=== PATIENT | male | born 1960 | race Caucasian/White ===

== ENCOUNTER → 2018-09-04 08:26 | Outpatient (CLI) | payer OTHER, SELFPAY ==
[2018-09-04 08:47] LABS: Creatinine,Urine Random 333 mg/dL (20-320)
[2018-09-04 10:08] LABS: Alanine Aminotransferase 49 U/L (12-78); Albumin Level 3.8 gm/dL (3.4-5.0); Albumin/Globulin Ratio 1.1 (1.1-1.8); Alkaline Phosphatase 76 U/L (46-116); Anion Gap 14.3 mEq/L (5-15); Aspartate Amino Transferase 22 U/L (15-37); Bilirubin,Total 0.5 mg/dL (0.2-1.0); Blood Urea Nitrogen 12 mg/dL (7-18); Calcium 8.8 mg/dL (8.5-10.1); Carbon Dioxide 27 mmol/L (21.0-32.0); Chloride 103 mmol/L (98-107); Chol/HDL Ratio 7.7 (1-3.5); Cholesterol 193 mg/dL (140-200); Creatinine,Serum 0.85 mg/dL (0.70-1.30); Estimated Glomerular Filt Rate 92 ml/min (>60); GFR (African American) 111 ML/MIN (>60); Globulin 3.4 gm/dl (1.3-3.2); Glucose 163 mg/dL (74-106); HDL Cholesterol 25 mg/dL (27-67); Potassium 4.3 mmoL/L (3.5-5.1); Sodium 140 mmol/L (136-145); Thyroid Stimulating Hormone 2.77 uIU/ml (0.358-3.740); Total Protein,Serum 7.2 gm/dL (6.4-8.2); Triglycerides 618 mg/dL (30-200)
[2018-09-05 14:18] LABS: Microalbumin, Urine 20.3 ug/mL (Not Estab.)
== END ==
PROVIDERS: Visit Provider Family Medicine
DX: I10 Essential (primary) hypertension (principal)
CPT/HCPCS: 36415; 80053; 80061; 82043; 82570; 84443

== ENCOUNTER → 2019-09-16 13:52 | Outpatient (CLI) | payer BC, SELFPAY ==
[2019-09-16 14:00] LABS: Microscopic, Urine URINE MICROSCOPIC (MICROSCOPIC)
[2019-09-16 14:35] LABS: Basophils # 0.1 K/mm3 (0-0.2); Basophils % 0.9 % (0.1-2.0); Eosinophils # 0.2 K/mm3 (0.0-0.4); Eosinophils % 2.3 % (0.1-12.0); Hematocrit 53.1 % (42.0-52.0); Hemoglobin 16.9 g/dL (14.1-18.0); Lymphocytes # 2.9 K/mm3 (0.7-4.5); Lymphocytes % 32.7 % (10-50); Mean Corpuscular HGB Conc 31.9 g/dL (31.8-35.4); Mean Corpuscular Hemoglobin 29.4 pg (27.0-31.2); Mean Corpuscular Volume 92.3 fl (80-94); Mean Platelet Volume 8.8 fl (7.4-10.4); Monocytes # 0.5 K/mm3 (0.1-1.0); Monocytes % 5.3 % (1.7-9.3); Neutrophils # 5.3 K/mm3 (1.8-7.8); Neutrophils % 58.8 % (37.0-80.0); Platelet Count 221 K/mm3 (142-424); Red Blood Count 5.75 M/mm3 (4.60-6.20)
[2019-09-16 15:46] LABS: Appearance,Urine CLEAR (Clear); Blood, Urine Negative (Negative); Color,Urine DK YELLOW (Yellow); Glucose,Urine (UA) 2+ (Negative); Ketones,Urine Negative (Negative); Leukocyte Esterase,Urine Negative (Negative); Nitrate,Urine Negative (Negative); PH,Urine 5.5 (5.0-8.5); Protein,Urine 2+ (Negative); Specific Gravity, Urine >= 1.030 (1.005-1.030); Urobilinogen,Urine 0.2 EU/dl (0.2)
[2019-09-16 15:51] LABS: Bilirubin,Urine Negative (Negative)
[2019-09-16 16:10] LABS: Alanine Aminotransferase 95 U/L (12-78); Albumin/Globulin Ratio 1.1 (1.1-1.8); Alkaline Phosphatase 97 U/L (46-116); Anion Gap 18.7 mEq/L (5-15); Aspartate Amino Transferase 46 U/L (15-37); Bilirubin,Total 0.7 mg/dL (0.2-1.0); Blood Urea Nitrogen 22 mg/dL (7-18); Calcium 9.4 mg/dL (8.5-10.1); Carbon Dioxide 23 mmol/L (21.0-32.0); Chloride 98 mmol/L (98-107); Chol/HDL Ratio 9.4 (1-3.5); Cholesterol 264 mg/dL (140-200); Creatinine,Serum 1.03 mg/dL (0.70-1.30); Estimated Glomerular Filt Rate 73 ml/min (>60); GFR (African American) 89 ML/MIN (>60); Globulin 3.7 gm/dl (1.3-3.2); Glucose 298 mg/dL (74-106); HDL Cholesterol 28 mg/dL (27-67); Potassium 4.7 mmoL/L (3.5-5.1); Sodium 135 mmol/L (136-145); Thyroid Stimulating Hormone 3.09 uIU/ml (0.358-3.740); Total Protein,Serum 7.7 gm/dL (6.4-8.2)
[2019-09-16 16:11] LABS: Triglycerides 910 mg/dL (30-200)
[2019-09-16 16:16] LABS: Bacteria,Urine 1+ /lpf; Mucus,Urine 1+ /lpf; RBC,Urine Occasional #/hpf (0-3)
[2019-09-18 05:19] LABS: Creatinine, Urine 316.6 mg/dL (Not Estab.)
[2019-09-18 06:01] LABS: Microalbumin, Urine 560.1 ug/mL (Not Estab.)
== END ==
PROVIDERS: Visit Provider Family Medicine
DX: I10 Essential (primary) hypertension (principal); R35.8 Other polyuria; R73.9 Hyperglycemia, unspecified; E78.1 Pure hyperglyceridemia
CPT/HCPCS: 36415; 80053; 80061; 81001; 82043; 82570; 83036; 84443; 85025

== ENCOUNTER 2023-06-27 06:54 | Day surgery (SDC) | payer BC, SELFPAY ==
[2023-06-23 15:16] VITALS: BMI 27.9
[2023-06-27 07:19] VITALS: BP 176/128; PULSE 65; RESP 16; TEMP 36.7; O2SAT 98
[2023-06-27 07:23] LABS: POC Glucose,Bedside 85 (70-110)
[2023-06-27 08:05] VITALS: BP 185/99; PULSE 56; RESP 17; O2SAT 100
[2023-06-27 08:10] VITALS: BP 188/98; PULSE 57; RESP 16; O2SAT 100
[2023-06-27 08:15] VITALS: BP 162/94; PULSE 57; RESP 17; O2SAT 100
[2023-06-27 08:20] VITALS: BP 165/96; PULSE 55; RESP 16; O2SAT 100
[2023-06-27 08:38] VITALS: BP 158/85; PULSE 55; RESP 18; TEMP 36.2; O2SAT 95
== END 2023-06-27 08:38 | disposition home or self-care (01) ==
PROVIDERS: PCP Family Medicine; Visit Provider Ophthalmology
PROC: (CPT 66984; principal; 2023-06-27 08:30)
DX: E11.36 Type 2 diabetes mellitus with diabetic cataract (principal); H25.9 Unspecified age-related cataract
CPT/HCPCS: 66984; 82962; V2632

== ENCOUNTER 2023-08-29 06:32 | Day surgery (SDC) | payer BC, SELFPAY ==
[2023-08-25 11:54] VITALS: BMI 27.1
[2023-08-29] VITALS (8 sets, daily range): BP systolic 152–185; BP diastolic 86–108; PULSE 55–68; RESP 17–19; TEMP 36.4–37.1; O2SAT 97–100
[2023-08-29 11:40] LABS: POC Glucose,Bedside 86 (70-110)
== END 2023-08-29 09:25 | disposition home or self-care (01) ==
PROVIDERS: PCP Family Medicine; Visit Provider Ophthalmology
PROC: (CPT 66984; principal; 2023-08-29 08:30)
DX: E11.36 Type 2 diabetes mellitus with diabetic cataract (principal); H25.9 Unspecified age-related cataract
CPT/HCPCS: 66984; 82962; V2632

== ENCOUNTER 2025-05-24 07:04 | Emergency (ER) | payer BC, SELFPAY ==
--- OUTSIDE RECORDS SUMMARY | 2024-04-19 05:30 | XMS_ITS ---
Author Organization [facility] Address [address] [place] [id number] Care Team Providers Care [employer] Caser Name Role Phone Federico Segal Primary Care Provider Tod Anant Unavailable [phone] Allergies No Known Allergies Results Component Value Reference Range Notes Glucose (In-House) Reviewed date:04/19/2024 01:11:48 PM Interpretation: Performing Lab: Notes/Report: blood glucose 84 74 - 106 mg/dL Glycohemoglobin A1c (in hous e) Reviewed date:04/19/2024 01:11:41 PM Interpretation: Performing Lab: Notes/Report: glycohemoglobin 5.5% 5 - 6.5 % REASON FOR VISIT 6 Month Check Up Medications Medication SIG (Take, Route, Frequency, Duration) Notes Start Date End Date Status amLODIPine Besy-Benazepril HCl 5-10 MG TAKE 1 CAPSULE BY MOUTH EVERY DAY Active Metoprolol Succinate ER 100 MG 1 tab(s) orally once a day A ctive Gabapentin 300 MG 1 cap(s) orally 2 ti mes a day 10/13/2023 Active metFORMIN HCl ER 500 MG 1 tablet with ev ening meal orally once a day Active Vital Signs Blood pressure systolic 140 mm Hg 04/19/20 24 Blood pressure diastolic 80 mm Hg 024 Heart Rate 60 /min 04/19/2024 Height 71 in 04/19/2024 Weight 199.8 lbs 04/19/2024 BMI 27.86 kg/m2 04/19/2024 Encounters Encounter Location Date Provider Diagnosis [facility] [address] [place] [id number] 04/19/2024 Anant Baron Essential hypertensi on I10 and Diabetic polyneuropathy associated with type 2 diabetes mellitus E11.42 Assessments Encounter Date Diagnosis (ICD Code) Assessment Notes Treatment Notes Treatment Clinical Notes Section Notes 04/19/2024 Essential hypertension (ICD-10 - I10) 04/19/2024 Diabetic polyneuropathy associated with type 2 diabetes mellitus (ICD-10 - E11.42) Plan Of Treatment Medication Medication Name Sig Start Date Stop Date Notes amLODIPine Besy-Benazepril H Cl 5-10 MG TAKE 1 CAPSULE BY MOUTH EVERY DAY Metoprolol Succinate ER 100 MG 1 tab(s) orally once a day Gabapentin 300 MG 1 cap(s) orally 2 ti mes a day 10/13/2023 metFORMIN HCl ER 500 MG 1 tablet with ev ening meal orally once a day Next Appt Details Follow Up: 6 Months, Reason: Provider Name:Anant Almonte , 05/31/2025 09:15:00 AM, [address], [address], [place], [id number], Progress Notes * DEIDRA HURTADODOB: [birth year] (65 yo M)Acc No.[id number]:04/19/2024 Progress Notes Patient: DEIDRA CABALLERO Provider: Andrez Baron M.D. :1960 A ge:63 Y S ex:Male Date:04/19/2024 Address:[address] [place] [id number] Pcp:Federico Segal Subjective: * Chief Complaints: * 1 . 6 Month Check Up. * HPI: C ardiology: 63 year old male presents with c/o Blood Pressure Elevated P t here for 6 mo f/u on hypertension, states he is doing well and does not have any concerns. c/o Hyperlipidemia P t is fasting today. E ndocrinology: c/o Recent Blood Sugars P t here to f/u on DM 2, pt does not check blood sugar at home. * ROS: D ERMATOLOGY: no R yina. n o H dontrell. G ASTROENTEROLOGY: no N ausea. n o V omiting. U ROLOGY: no D ifficulty urinating. n o B lood in urine. * Medical History: H ypertension, 40 Year Smoking Hx as of 2015, Type 2 Diabetes, Diabetic Neuropathy, Cataracts. * Surgical History: L T Hand First Digit, 2 pins inserted into finger, Dr. Pack 04/2007, cataract, bilateral 2022. * Hospitalization/Major Diagno stic Procedure: D enies Past Hospitalization. * Family History: F ather: . M other: alive. 1 brother(s) , 2 sister(s) . 1 daughter(s) . .? * Social History: C URRENT TOBACCO USE S moking Status: Patient does smoke, packs per day: 1. C affeine: yes, frequency:daily. Home smoke detector use: yes. Marital Status: . Past smoking status: yes, PPD: , years: ,determination:. Alcohol: no. * Medications: T aking metFORMIN HCl ER 500 MG Tablet Extended Release 24 Hour 2 tab(s) orally once a day , Taking Gabapentin 300 MG Capsule 1 cap(s) orally 2 times a day , Taking Metoprolol Succinate ER 100 MG Tablet Extended Release 24 Hour 1 tab(s) orally once a day , Taking amLODIPine Besy-Benazepril HCl 5-10 MG Capsule TAKE 1 CAPSULE BY MOUTH EVERY DAY , Medication List reviewed and reconciled with the patient * Allergies: N .K.D.A. Objective: * Vitals: W t:199.8, Temp:98.0, BP:140/80, HR:60, Nurse:ghazala, Ht: 71, BMI:27.86. * Examination: C ardiology: General Appearance: p leasant, NAD. H eart sounds: R RR, normal S1, S2. L ungs: c lear, no rales or wheezes. E xtremities: n o leg edema. P eripheral pulses: 2 plus bilateral. Assessment: * Assessment: 1. E ssential hypertension - I10 (Primary) 2 . D iabetic polyneuropathy associated with type 2 diabetes mellitus - E11.42 Plan: * Treatment: 2. D iabetic polyneuropathy associated with type 2 diabetes mellitus Continue Gabapentin Capsule, 300 MG, 1 cap(s), orally, 2 times a day; D ecrease metFORMIN HCl ER Tablet Extended Release 24 Hour, 500 MG, 1 tablet with evening meal, orally, once a day. ? L AB: Glucose (In-House) (Collection Date & Time - 04/19/2024) Value Reference Range b lood glucose 84 74 - 106 mg/dL * Brunilda Phelan 04/19/2024 10:55:17 AM > , Provider reviewed results while patient in office. ?LAB: Glycohemoglobin A1c (in house) (Collection Date & Time - 04/19/2024)* Value Reference Range g lycohemoglobin 5.5% 5 - 6.5 % * Nuzhat Phelanira 04/19/2024 10:55:36 AM > , Provider reviewed results while patient in office. * Procedure Codes: 3 6416 CAPILLARY BLOOD DRAW, 79733 GLUCOSE TEST, 05303 GLYCATED HEMOGLOBIN TEST, Modifiers: QW * Follow Up: 6 Months * Images: Billing Information: * Visit Code: 43639 Office Visit, Est Pt., Level 3. * Procedure Codes: 99622 CAPILLARY BLOOD DRAW. 12211 GLUCOSE TEST. 04829 GLYCATED HEMOGLOBIN TEST. Modifiers: QW * Electronic signature of Pippa Baron MD on 05/24/2025 at 07:17 AM EDT Sign off status: Pending * Provider: Andrez Baron M.D. Date: 04/19/2024 Generated for Efrain mendes/Sharon/Scottsmitting on: 0 05/24/2025 07:17 AM EDT History and Physical Notes * HPI (History of Present Illness) Category Sub-Category Detail Notes Category Not es Endocrinology Recent Blood Sugars Pt here to f /u on DM 2, pt does not check blood sugar at home Cardiology Blood Pressure Elevated Pt here for 6 mo f/u on hypertension, states he is doing well and does not have any concerns Hyperlipidemia Pt is fasting today Examination Category Sub-Category Detail Notes Category Not es Cardiology Lungs: clear, no rales or wheezes Heart sounds: RRR, normal S1, S2 Extremities: no leg edema Peripheral pulses: 2 plus bilateral General Appearance: pleasant, NAD
--- OUTSIDE RECORDS SUMMARY | 2024-11-01 06:00 | XMS_ITS ---
Author Organization [facility] Address 1210 [facility] 36 [facility] [address] [place] [id number] Care Team Providers Care Graphics Production Specialist Name Role Phone Federico Segal Primary Care Provider Anant Baron [phone] Allergies No Known Allergies REASON FOR VISIT 6 months Encounters Encounter Location Date Provider Diagnosis [facility] 12[address] [facility] 36 [facility] [address] [place] [phone] 11/01/2024 Anant Baron Plan Of Treatment Next Appt Details Provider Name:Anant Almonte ry, 05/31/2025 09:15:00 AM, [address], [address], [facility] [place], [phone], Progress Notes * DEIDRA HURTADODOB: [birth year] (65 yo M)Acc No.[id number]:11/01/2024 Progress Notes Patient: DEIDRA CABALLERO Provider: Andrez Baron M.D. :1960 A ge:64 Y S ex:Male Date:11/01/2024 [address] [facility] [id number] Pcp:Federico Segal Subjective: * Chief Complaints: * 1 . 6 months. * HPI: C ardiology: 64 year old male presents with c/o Blood Pressure Elevated P t here for 6 mo f/u on hypertension, states he is doing well and does not have any concerns. c/o Hyperlipidemia P t is fasting today. E ndocrinology: c/o Recent Blood Sugars P t here to f/u on DM 2. * ROS: D ERMATOLOGY: no R yina. [...] PPD: , years: ,determination:. Alcohol: no. * Allergies: N .K.D.A. Objective: * Vitals: Assessment: Plan: * Treatment: * Images: Billing Information: * Visit Code: * Procedure Codes: * Electronic signature of Pippa Baron MD on 05/24/2025 at 07:17 AM EDT Sign off status: Pending * Provider: Andrez Baron M.D. Date: 0 11/01/2024 Generated for Efrain mendes/Sharon/eTransmitting on: 0 05/24/2025 07:17 AM EDT History and Physical Notes * HPI (History of Present Illness) Category Sub-Category Detail Notes Category Not es Endocrinology Recent Blood Sugars Pt here to f/u on DM 2 Cardiology Blood Pressure Elevated Pt here for 6 mo f/u on hypertension, states he is doing well and does not have any concerns Hyperlipidemia Pt is fasting today
--- OUTSIDE RECORDS SUMMARY | 2024-11-08 06:00 | XMS_ITS ---
[facility] Organization [facility] Address [address] [phone] Care Team Providers Care [employer] Special Education Teacher Name Role Phone LuzmaFederico Primary Care Provider Anant Baron Unavailable [phone] Allergies No Known Allergies Results Component Value Reference Range Notes Glucose (In-House) Reviewed date:11/11/2024 05:32:27 PM Interpretation:89 Normal Performing Lab: Notes/Report: 89 Normal blood glucose 89 74 - 106 mg/dL Glycohemoglobin A1c (in hous e) Reviewed date:11/11/2024 05:32:27 PM Interpretation:5.5 Normal Performing Lab: Notes/Report: 5.5 Normal glycohemoglobin 5.5% 5 - 6.5 % P-Comprehensive Metabolic Pa coretta (CMP) Reviewed date:11/11/2024 05:32:27 PM Interpretation:Normal Performing Lab: Notes/Report: Test performed by [facility] [address] [place] [address] , [address], [place] [address] Sandeep Jett MD, [place] CLIA: [id number] Sodium 142 135-145 mmol/L Potassium 3.9 3.5-5.3 mmol/L Chloride 106 97-108 mmol/L CO2 26 22-32 mmol/L Glucose 80 65-99 mg/dL BUN 15 8-23 mg/dL Creatinine 0.76 0.70-1.30 mg/dL Calcium 9.4 8.6-10.4 mg/dL eGFR by Creatinine 99 >59 mL/min/1.73m2 Protein 7.1 6.0-8.3 g/dL Albumin 4.6 3.5-5.3 g/dL Alkaline Phosphatase 62 40-129 IU/L ALT (SGPT) 20 <5-55 IU/L AST (SGOT) 19 <5-46 IU/L Bilirubin, Total 0.6 <0.2-1.2 mg/dL A/G Ratio 1.8 1.1-2.5 P-Lipid Panel Reviewed date:11/11/2024 05:32:27 PM Interpretation:Normal Performing Lab: Notes/Report: Test performed by [facility], [address] [place] [address] , [address], [place] [address] Sandeep Jett MD, [place] CLIA: [id number] Cholesterol 165 <200 mg/dL Triglycerides 135 <150 mg/dL HDL Cholesterol 39 >39 mg/dL Cholesterol / HDL Ratio 4.23 0.00-4.99 Ratio Non-HDL Cholesterol 126 <130 mg/dL LDL Cholesterol (Calculation) 99 <130 mg/dL LDL Cholesterol Levels* Less than 100 mg/dL Optimal 100 to 129 mg/dL Near Optimal/ Above Optimal 130 to 159 mg/dL Borderline High 160 to 189 mg/dL High 190 mg/dL and above Very High * Categories as recommended by the 2004 ATPIII guidelines LDL/HDL Ratio 2.5 <3.3 Ratio LDL Cholesterol Patient History Test Date: 10/13/2023 LDL Results: 100 Units: mg/dL % Change: - Test Date: 11/08/2024 LDL Results: 99 Units: mg/dL % Change: -1% P-TSH reflex to FT4 Reviewed date:11/11/2024 05:32:27 PM Interpretation:Normal Performing Lab: Notes/Report: Test performed by [facility] [address] [place], [place] [address] [place] , [place] [address] Sandeep Jett MD, [place] CLIA: [id number] TSH reflex to FT4 2.38 0.43-5.25 mU/L P-Microalbumin/Creatinine, R andom Urine Sample Reviewed date:11/11/2024 05:32:27 PM Interpretation:Normal Performing Lab: Notes/Report: Test performed by [facility] [address] [place], [place] [address] [place] , [place] [address] Sandeep Jett MD, [place] CLIA: [id number] Albumin/Creatinine Ratio, Urine 10 0-30 ug/m g Microalbumin, Urine, Random 1.6 Creatinine, Urine 152.4 REASON FOR VISIT 6 month f/u Medications Medication SIG (Take, Route, Frequency, Duration) Notes Start Date End Date Status Gabapentin 300 MG 1 cap(s) orally 2 ti mes a day; Duration: 90 days 06/25/2024 Active Montelukast Sodium 10 MG TAKE 1 TABLET B Y MOUTH DAILY; Duration: 90 Active Metoprolol Succinate ER 100 MG 1 tab(s) orally once a day; Duration: 90 days Active amLODIPine Besy-Benazepril HCl 5-10 MG TAKE 1 CAPSULE BY MOUTH EVERY DAY; Duration: 90 days Active metFORMIN HCl ER 500 MG TAKE 1 TABLET BY MOUTH DAILY WITH THE EVENING MEAL; Duration: 90 days Active Vital Signs Blood pressure systolic 150 mm Hg 11/08/19 25 Blood pressure diastolic 80 mm Hg 025 Heart Rate 66 /min 11/08/2024 Height 71 in 11/08/2024 Weight 209.4 lbs 11/08/2024 BMI 29.20 kg/m2 11/08/2024 Encounters Encounter Location Date Provider Diagnosis [facility] [address] [place], [place] [phone] 11/08/2024 Anant Baron Essential hypertensi on I10 ; Type 2 diabetes mellitus without complication, without long-term current use of insulin E11.9 ; Hypertriglyceridemia E78.1 and Diabetic polyneuropathy associated with type 2 diabetes mellitus E11.42 Assessments Encounter Date Diagnosis (ICD Code) Assessment Notes Treatment Notes Treatment Clinical Notes Section Notes 11/08/2024 Essential hypertensi on (ICD-10 - I10) 11/08/2024 Type 2 diabetes sondra itus without complication, without long-term current use of insulin (ICD-10 - E11.9) 11/08/2024 Hypertriglyceridemia (ICD-10 - E78.1) 11/08/2024 Diabetic polyneuropa thy associated with type 2 diabetes mellitus (ICD-10 - E11.42) Plan Of Treatment Medication Medication Name Sig Start Date Stop Date Notes Metoprolol Succinate ER 100 MG 1 tab(s) orally once a day; Duration: 90 days amLODIPine Besy-Benazepril H Cl 5-10 MG TAKE 1 CAPSULE BY MOUTH EVERY DAY; Duration: 90 days metFORMIN HCl ER 500 MG TAKE 1 TABLET BY MOUTH DAILY WITH THE EVENING MEAL; Duration: 90 days Next Appt Details Follow Up: 6 Months, Reason: Provider Name:Anant Almonte , 05/31/2025 09:15:00 AM, 1210 [facility] 36 [facility], [address], [place], [phone], Progress Notes * DEIDRA HURTADODOB: [birth year] (65 yo M)Acc No.[id number]:11/08/2024 Progress Notes Patient: DEIDRA CABALLERO Provider: Andrez Baron M.D. :1960 A ge:64 Y S ex:Male Date:11/08/2024 Address:[address] [place] [address] [place], [id number] Pcp:Federico Segal Subjective: * Chief Complaints: * 1 . 6 month f/u. * HPI: C ardiology: 64 year old male presents with c/o Blood Pressure Elevated P t here for 6 mo f/u on hypertension, states he is doing well and does not have any concerns. c/o Hyperlipidemia P t is fasting today. E ndocrinology: c/o Recent Blood Sugars P t here to f/u on DM 2, pt states he does not check blood sugar at home. [...] ,determination:. Alcohol: no. * Medications: T aking Montelukast Sodium 10 MG Tablet TAKE 1 TABLET BY MOUTH DAILY , Taking Gabapentin 300 MG Capsule 1 cap(s) orally 2 times a day , Taking Metoprolol Succinate ER 100 MG Tablet Extended Release 24 Hour 1 tab(s) orally once a day , Taking amLODIPine Besy-Benazepril HCl 5-10 MG Capsule TAKE 1 CAPSULE BY MOUTH EVERY DAY , Taking metFORMIN HCl ER 500 MG Tablet Extended Release 24 Hour TAKE 1 TABLET BY MOUTH DAILY WITH THE EVENING MEAL , Medication List reviewed and reconciled with the patient * Allergies: N .K.D.A. Objective: * Vitals: W t:209.4, Temp:98.0, BP:150/80, HR:66, Nurse:kk, Ht: 71, Repeat BP:144/76, BMI:29.20. * Examination: C ardiology: General Appearance: p leasant, NAD. H eart sounds: R RR, normal S1, S2. L ungs: c lear, no rales or wheezes. E xtremities: n o leg edema. P eripheral pulses: 2 plus bilateral. Assessment: * Assessment: 1. E ssential hypertension - I10 (Primary) 2 . T ype 2 diabetes mellitus without complication, without long-term current use of insulin - E11.9 3 . H ypertriglyceridemia - E78.1 4 . D iabetic polyneuropathy associated with type 2 diabetes mellitus - E11.42 Plan: * Treatment: Value Reference Range A /G Ratio 1.8 1.1-2.5 - * A lbumin 4.6 3.5-5.3 - g/dL * A lkaline Phosphatase 62 40-129 - IU/L * A LT (SGPT) 20 <5-55 - IU/L * A ST (SGOT) 19 <5-46 - IU/L * B ilirubin, Total 0.6 <0.2-1.2 - mg/dL * B UN 15 8-23 - mg/dL * C alcium 9.4 8.6-10.4 - mg/dL * C hloride 106 97-108 - mmol/L * C O2 26 22-32 - mmol/L * C reatinine 0.76 0.70-1.30 - mg/dL * G lucose 80 65-99 - mg/dL * P otassium 3.9 3.5-5.3 - mmol/L * S odium 142 135-145 - mmol/L * P rotein 7.1 6.0-8.3 - g/dL * e GFR by Creatinine 99 >59 - mL/min/1.73m2 * Brunilda Phelan 11/11/2024 5:31:55 PM > Pt informed 2.?Type 2 diabetes mellitus without complication, without long-term current use of insulin? Refill metFORMIN HCl ER Tablet Extended Release 24 Hour, 500 MG, TAKE 1 TABLET BY MOUTH DAILY WITH THE EVENING MEAL, 90 days, 90 Tablet, Refills 1.?LAB: P-Comprehensive Metabolic Panel (CMP) (Collection Date & Time - 11/08/2024 09:37 AM)?Normal* Value Reference Range A /G Ratio 1.8 1.1-2.5 - * A lbumin 4.6 3.5-5.3 - g/dL * A lkaline Phosphatase 62 40-129 - IU/L * A LT (SGPT) 20 <5-55 - IU/L * A ST (SGOT) 19 <5-46 - IU/L * B ilirubin, Total 0.6 <0.2-1.2 - mg/dL * B UN 15 8-23 - mg/dL * C alcium 9.4 8.6-10.4 - mg/dL * C hloride 106 97-108 - mmol/L * C O2 26 22-32 - mmol/L * C reatinine 0.76 0.70-1.30 - mg/dL * G lucose 80 65-99 - mg/dL * P otassium 3.9 3.5-5.3 - mmol/L * S odium 142 135-145 - mmol/L * P rotein 7.1 6.0-8.3 - g/dL * e GFR by Creatinine 99 >59 - mL/min/1.73m2 * Brunilda Phelan 11/11/2024 5:31:55 PM > Pt informed ?LAB: P-TSH reflex to FT4 (Collection Date & Time - 11/08/2024 09:37 AM)? Normal* Value Reference Range T SH reflex to FT4 2.38 0.43-5.25 - mU/L * Brunilda Phelan 11/11/2024 5:31:55 PM > Pt informed ?LAB: P-Microalbumin/Creatinine, Random Urine Sample (Collection Date & Time - 11/08/2024 09:37 AM)?Normal* Value Reference Range A lbumin/Creatinine Ratio, Urine 10 0-30 - ug /mg * C reatinine, Urine 152.4 - mg/dL * M icroalbumin, Urine, Random 1.6 - mg/dL * Brunilda Phelan 11/11/2024 5:31:55 PM > Pt informed ?LAB: Glucose (In-House) (Collection Date & Time - 11/08/2024)?89 Normal* Value Reference Range b lood glucose 89 74 - 106 mg/dL * Brunilda Phelan 11/08/2024 12:15:4 6 PM > Brunilda Phelan 11/11/2024 5:31:55 PM > Pt informed ?LAB: Glycohemoglobin A1c (in house) (Collection Date & Time - 11/08/2024)? 5.5 Normal* Value Reference Range g lycohemoglobin 5.5% 5 - 6.5 % * Brunilda Phelan 11/08/2024 12:20:5 3 PM > Brunilda Phelan 11/11/2024 5:31:55 PM > Pt informed 3.?Hypertriglyceridemia?LAB: P-Comprehensive Metabolic Panel (CMP) (Collection Date & Time - 11/08/2024 09:37 AM)?Normal* Value Reference Range A /G Ratio 1.8 1.1-2.5 - * A lbumin 4.6 3.5-5.3 - g/dL * A lkaline Phosphatase 62 40-129 - IU/L * A LT (SGPT) 20 <5-55 - IU/L * A ST (SGOT) 19 <5-46 - IU/L * B ilirubin, Total 0.6 <0.2-1.2 - mg/dL * B UN 15 8-23 - mg/dL * C alcium 9.4 8.6-10.4 - mg/dL * C hloride 106 97-108 - mmol/L * C O2 26 22-32 - mmol/L * C reatinine 0.76 0.70-1.30 - mg/dL * G lucose 80 65-99 - mg/dL * P otassium 3.9 3.5-5.3 - mmol/L * S odium 142 135-145 - mmol/L * P rotein 7.1 6.0-8.3 - g/dL * e GFR by Creatinine 99 >59 - mL/min/1.73m2 * Brunilda Phelan 11/11/2024 5:31:55 PM > Pt informed ?LAB: P-Lipid Panel (Collection Date & Time - 11/08/2024 09:37 AM)?Normal* Value Reference Range C holesterol / HDL Ratio 4.23 0.00-4.99 - Ratio * C holesterol 165 <200 - mg/dL * H DL Cholesterol 39 L >39 - mg/dL * L DL Cholesterol (Calculation) 99 <130 - mg/d L * L DL/HDL Ratio 2.5 <3.3 - Ratio * N on-HDL Cholesterol 126 <130 - mg/dL * T riglycerides 135 <150 - mg/dL * Nuzhat Phelanira 11/11/2024 5:31:55 PM > Pt informed * Procedure Codes: 8 2950 GLUCOSE TEST, 81377 GLYCATED HEMOGLOBIN TEST, Modifiers: QW , 3044F HG A1C LEVEL LT 7.0%, 3077F SYST BP = 140 MM HG6 IT, 3078F DIAST BP < 80 MM HG * Follow Up: 6 Months * Images: Billing Information: * Visit Code: 65622 Office Visit, Est Pt., Level 4. * Procedure Codes: 00426 GLUCOSE TEST. 68556 GLYCATED HEMOGLOBIN TEST. Modifiers: QW 3044F HG A1C LEVEL LT 7.0%. 3077F SYST BP = 140 MM HG6 IT. 3078F DIAST BP < 80 MM HG. * Electronic signature of Pippa Baron MD on 05/24/2025 at 07:18 AM EDT Sign off status: Pending * Provider: Andrez Baron M.D. Date: 0 11/08/2024 Generated for Efrain mendes/Sharon/eTransmitting on: 0 05/24/2025 07:18 AM EDT History and Physical Notes * HPI (History of Present Illness) Category Sub-Category Detail Notes Category Not es Endocrinology Recent Blood Sugars Pt here to f /u on DM 2, pt states he does not check blood sugar at home [...]
[2025-05-24] VITALS (12 sets, daily range): BP systolic 152–192; BP diastolic 97–116; PULSE 53–76; RESP 12–23; TEMP 36.6–36.7; O2SAT 95–98; BMI 4100.8
--- OUTSIDE RECORDS SUMMARY | 2025-05-24 07:18 | XMS_ITS | Patient Health Record ---
[facility] Address [address] [place] [id number] Care Team Providers Care Government Affairs Fellow Name Role Phone Federico Segal Primary Care Provider [phone] [place] Unavailable [phone] Allergies No Known Allergies Results Component Value [...] Interpretation:Normal Performing Lab: Notes/Report: Test performed by [facility] [address] [place] [address] , [address], [place] [address] Sandeep Jett MD, C S S Representative CLIA: [id number] Sodium 142 135-145 mmol/L Potassium 3.9 3.5-5.3 [...] 0.6 <0.2-1.2 mg/dL A/G Ratio 1.8 1.1-2.5 P-Microalbumin/Creatinine, R andom Urine Sample Reviewed date:11/11/2024 05:32:27 PM Interpretation:Normal Performing Lab: Notes/Report: Test performed by [facility] [address] [place] [address] , [address], [place] [address] Sandeep Jett MD, C S S Representative CLIA: [id number] Albumin/Creatinine Ratio, Urine 10 0-30 ug/m g Microalbumin, Urine, Random 1.6 Creatinine, Urine 152.4 P-TSH reflex to FT4 Reviewed date:11/11/2024 05:32:27 PM Interpretation:Normal Performing Lab: Notes/Report: Test performed by [facility] [address] [place] [address] , [address], [place] [address] Sandeep Jett MD, C S S Representative CLIA: [id number] TSH reflex to FT4 2.38 0.43-5.25 mU/L P-Lipid Panel Reviewed date:11/11/2024 05:32:27 PM Interpretation:Normal Performing Lab: Notes/Report: Test performed by [facility] [address] [place] [address] , [address], [place] [address] Sandeep Jett MD, C S S Representative CLIA: [id number] Cholesterol 165 <200 mg/dL Triglycerides 135 <150 [...] ATPIII guidelines LDL/HDL Ratio 2.5 <3.3 Ratio % Change: -1% LDL Cholesterol Patient History Test Date: 10/13/2023 LDL Results: 100 Units: mg/dL % Change: - Test Date: 11/08/2024 LDL Results: 99 Units: mg/dL Reason For Referral No Information Medications Medication SIG (Take, Route, Frequency, Duration) Notes Start Date End Date Status Gabapentin 300 MG 1 cap(s) orally 2 ti mes a day; Duration: 90 days 06/25/2024 Active Montelukast Sodium 10 MG TAKE 1 TABLET B Y MOUTH DAILY; Duration: 90 Active amLODIPine Besy-Benazepril HCl 5-10 MG 1 capsule Orally once a day; Duration: 90 days Active metFORMIN HCl ER 500 MG TAKE 1 TABLET BY MOUTH DAILY WITH THE EVENING MEAL; Duration: 90 days Active Metoprolol Succinate ER 100 MG 1 tab(s) orally once a day; Duration: 90 days Active Immunizations Vaccine Route Administration Date Status Comme nts Prevnar (PCV20) IM Intramuscular 10/13/2023 Administered Fluzone Quad (6months&older) IM Intramuscular 09/04/2020 Administered Fluzone Quad (6months&older) IM Intramuscular 06/18/2021 Administered Fluzone Quad (6months&older) IM Intramuscular 09/13/2022 Administered Fluzone High Dose (65yr and older) IM Intramuscular 10/13/2023 Administered COVID 19 Marcella Unknown 12/06/2020 Administered Problems Problem Type SNOMED Code ICD Code Onset Dates Problem Status W/U Status Risk Notes Problem Essential hypertension (19907758) HTN [Hypertension] (401.9) Active confirmed Problem Essential hypertension (90751952) Essential hypertension (I10) Active confirmed Problem Hypertriglyceridemia (952406880) Hypertriglyceridemia (E78.1) Active confirmed Problem Nicotine dependence (69512088) Personal history of nicotine dependence (Z87.891) Active confirmed Problem Polyneuropathy due t o type 2 diabetes mellitus (625182071) Diabetic polyneuropathy associated with type 2 diabetes mellitus (E11.42) Active confirmed Problem Tobacco user (127356419) Cigarette nicotine dependence without complication (F17.210) Active confirmed Problem Type II diabetes mellitus without complication (082587107) Type 2 diabetes mellitus without complication, without long-term current use of insulin (E11.9) Active confirmed Problem Skin sensation disturbance (83884555) Burning sensation of feet (R20.8) Active confirmed Vital Signs Heart Rate 66 /min 11/08/2024 Blood pressure diastolic 80 mm Hg 11/08/2024 Height 71 in 11/08/2024 Blood pressure systolic 150 mm Hg 11/08/2024 Weight 209.4 lbs 11/08/2024 BMI 29.20 kg/m2 11/08/2024 Encounters Encounter Location Date Provider Diagnosis [facility] [address] [facility] [address] [place], [place] [id number] 11/08/2024 Anant [place] Essential hypertensi on I10 ; Type 2 diabetes mellitus without complication, without long-term current use of insulin E11.9 ; Hypertriglyceridemia E78.1 and Diabetic polyneuropathy associated with type 2 diabetes mellitus E11.42 [facility] [address] [facility] [address] [place], [place] [phone] 06/25/2024 Anant [place] Diabetic polyneuropa thy associated with type 2 diabetes mellitus E11.42 [facility] [address] [facility] [address] [facility] [address] [place] [id number] 10/15/2024 Federico Segal [facility] [address] [facility] [address] [facility] [address] [place] [id number] 03/11/2025 Federico Segal Type 2 diabetes sondra itus without complication, without long-term current use of insulin E11.9 [facility] [address] [facility] [address] [facility] [address] [place] [id number] 04/17/2025 R Neptali Segal Essential hypertensi on I10 Assessments Encounter Date Diagnosis (ICD Code) Assessment Notes Treatment Notes Treatment Clinical Notes Section Notes 04/17/2025 Essential hypertensi on (ICD-10 - I10) 03/11/2025 Type 2 diabetes sondra itus without complication, without long-term current use of insulin (ICD-10 - E11.9) 06/25/2024 Diabetic polyneuropa thy associated with type 2 diabetes mellitus (ICD-10 - E11.42) 11/08/2024 Essential hypertensi on (ICD-10 - I10) 11/08/2024 Type 2 diabetes sondra itus without complication, without long-term current use of insulin (ICD-10 - E11.9) 11/08/2024 Hypertriglyceridemia (ICD-10 - E78.1) 11/08/2024 Diabetic polyneuropa thy associated with type 2 diabetes mellitus (ICD-10 - E11.42) Plan Of Treatment Next Appt Details Provider Name:Anant Almonte , 05/31/2025 09:15:00 AM, [address] [facility] [address] [facility], [address], [place], [id number], Insurance Providers Payer Name Payer Address Payer Phone Subscriber Number Group Number Insured Name Patient Relationship to Insured Coverage Start Date Coverage End Date [employer] [address] [place] [address] [phone] [id number] DEIDRA HURTADO Self - patient is the insured Medical (General) History Medical History History ICD Code Hypertension 40 Year Smoking Hx as of 2015 Type 2 Diabetes Diabetic Neuropathy Cataracts Surgical History Surgery Date(Month/Year) LT Hand First Digit, 2 pins inserted int o finger, Dr. Pack 04/2007 cataract, bilateral 2022 Hospitalization History Reason Date(Month/Year)
--- OUTSIDE RECORDS SUMMARY | 2025-05-24 07:18 | XMS_ITS ---
Author Organization Unknown Vital Signs BpStanding BpSitting BpSupine Date Temperature HeartRate Weight Hei ght Spo2 Respiration Bmi HeadCircumference FieldCount TimeRecorded NeckCircumferen ce WaistCircumference Pulse 150/80 11/08 00:00 :00 98.0 66 209,6.4 0 5,11 29.2 0 6 2025 10:00:00
[2025-05-24 07:20] LABS: POC Glucose,Bedside 101 gm/dL (70-110)
--- NOTE | 2025-05-24 07:23 | CT_ITS ---
PROCEDURE INFORMATION: Exam: CTA Head With Contrast, Arteriography Exam date and time: 05/24/2025 7:40 AM Age: 65 years old Clinical indication: Stroke-like symptoms; Altered mental status/memory loss; Additional info: Possible stroke TECHNIQUE: Imaging protocol: Computed tomographic angiography of the head with contrast. Exam focused on the arteries. 3D rendering (Not supervised by radiologist): MIP and/or 3D reconstructed images were created by the technologist. Radiation optimization: All CT scans at this facility use at least one of these dose optimization techniques: automated exposure control; mA and/or kV adjustment per patient size (includes targeted exams where dose is matched to clinical indication); or iterative reconstruction. Contrast material: ISOVUE; Contrast volume: 80 ml; Contrast route: INTRAVENOUS (IV); COMPARISON: CT HEAD/BRAIN WO CON 05/24/2025 7:38 AM FINDINGS: ANTERIOR CIRCULATION: Right internal carotid artery: Intracranial segment is patent with no significant stenosis. No aneurysm. Right middle cerebral artery: No occlusion or significant stenosis. No aneurysm. Right anterior cerebral artery: No occlusion or significant stenosis. No aneurysm. Left internal carotid artery: Intracranial segment is patent with no significant stenosis. No aneurysm. Left middle cerebral artery: No occlusion or significant stenosis. No aneurysm. Left anterior cerebral artery: No occlusion or significant stenosis. No aneurysm. POSTERIOR CIRCULATION: Right vertebral artery: No occlusion or significant stenosis. No aneurysm. Left vertebral artery: No occlusion or significant stenosis. No aneurysm. Basilar artery: No occlusion or significant stenosis. No aneurysm. Right posterior cerebral artery: No occlusion or significant stenosis. No aneurysm. Left posterior cerebral artery: No occlusion or significant stenosis. No aneurysm. Brain: No definite mass, mass effect, or midline shift. Cerebral ventricles: No ventriculomegaly. Bones/joints: Unremarkable. No acute fracture. Soft tissues: Unremarkable. IMPRESSION: No large vessel occlusion or significant stenosis.
--- NOTE | 2025-05-24 07:23 | ECG_ITS ---
APPROVED REPORT Exam: Resting ECG HR:77 bpm ECG Measurements Heart Rate 77 AXES AZ 212 P -7 QRSd 87 QRS -7 QT 335 T 3 QTc 367 Conclusion Normal sinus rhythm PVCs No STEMI Electronically signed by : Jad Tucker, 05/24/2025 17:36:26
--- NOTE | 2025-05-24 07:23 | CT_ITS ---
PROCEDURE INFORMATION: Exam: CT Head Without Contrast Exam date and time: 05/24/2025 7:38 AM Age: 65 years old Clinical indication: Stroke-like symptoms; Altered mental status/memory loss; Additional info: Possible stroke TECHNIQUE: Imaging protocol: Computed tomography of the head without contrast. Radiation optimization: All CT scans at this facility use at least one of these dose optimization techniques: automated exposure control; mA and/or kV adjustment per patient size (includes targeted exams where dose is matched to clinical indication); or iterative reconstruction. Other technique: STROKE PROTOCOL was implemented. COMPARISON: No relevant prior studies available. FINDINGS: Brain: Intracranial vascular calcifications are present. Mild generalized intracranial volume loss is present. There is mild diffuse heterogeneity of the white matter attenuation, consistent with chronic white matter ischemic changes. Dural calcifications. There is no evidence of acute intracranial hemorrhage. No mass effect or midline shift. Cerebral ventricles: Ex-vacuo changes of the ventricles. Paranasal sinuses: Visualized sinuses are unremarkable. No fluid levels. Mastoid air cells: Visualized mastoid air cells are well aerated. Orbital cavities: Bilateral lens replacements noted. Bones: Unremarkable. No acute fracture. Soft tissues: Unremarkable. IMPRESSION: Age-related atrophy and chronic white matter ischemic changes, with no evidence of an acute intracranial abnormality. ASSESSMENT: ASPECTS (Martha Stroke Program Early CT Score) is 10.
--- NOTE | 2025-05-24 07:23 | CT_ITS ---
PROCEDURE INFORMATION: Exam: CTA Neck With Contrast Exam date and time: 05/24/2025 7:40 AM Age: 65 years old Clinical indication: Stroke-like symptoms; Altered mental status/memory loss; Additional info: Possible stroke TECHNIQUE: Imaging protocol: Computed tomographic angiography of the neck with contrast. Exam focused on the cervical segments of the vasculature. 3D rendering (Not supervised by radiologist): MIP and/or 3D reconstructed images were created by the technologist. Radiation optimization: All CT scans at this facility use at least one of these dose optimization techniques: automated exposure control; mA and/or kV adjustment per patient size (includes targeted exams where dose is matched to clinical indication); or iterative reconstruction. Contrast material: ISOVUE; Contrast volume: 80 ml; Contrast route: INTRAVENOUS (IV); COMPARISON: CT HEAD/BRAIN WO CON 05/24/2025 7:38 AM FINDINGS: Right common carotid artery: No stenosis. No dissection or occlusion. Right internal carotid artery: No stenosis of the extracranial segment. No dissection or occlusion. Right external carotid artery: No occlusion or stenosis of the origin. Left common carotid artery: No stenosis. No dissection or occlusion. Left internal carotid artery: Calcified and noncalcified atherosclerosis left carotid bulb with 20% luminal narrowing. Left external carotid artery: No occlusion or stenosis of the origin. Right vertebral artery: No stenosis. No dissection or occlusion. Left vertebral artery: No stenosis. No dissection or occlusion. Aorta: Mild atherosclerotic changes of the aorta and branch vessels. Soft tissues: Normal. No significant soft tissue swelling. Bones/joints: Degenerative changes of the spine. Lungs: Paraseptal emphysema right greater than left upper lungs. IMPRESSION: No significant stenosis or occlusion. REFERENCES: NASCET CRITERIA. The degree of stenosis in the cervical segment of the internal carotid artery is based on NASCET criteria. Normal is no stenosis. Mild is less than 50% stenosis. Moderate is 50-69% stenosis. Severe is 70% to 99% stenosis. Total occlusion is no detectable patent lumen.
--- NOTE | 2025-05-24 07:24 | ED_ITS ---
Discharge Plan Disposition Patient Disposition: Admitted Clinical Impressions Clinical Impression: Transient cerebral ischemia Discharge ED Provider: Jad Tucker General Adult HPI General Chief complaint: Neuro Symptoms/Deficit Stated complaint: trouble speaking, trouble with R hand mobility Time Seen by Provider: 05/24/25 07:07 Mode of Arrival: Ambulatory Source of Information: Patient Description of Symptoms (Recalled from ER Triage Doc. by RN): Patient reports difficulty talking and right arm weakness that started when he woke up yesterday at 330pm. Patient states he went to work and his symptoms got better but decided to come in this morning just to make sure everything was ok. History of Present Illness HPI narrative: This is a 65-year-old male patient, with past medical history of hypertension and diabetes, who is presenting to the emergency department today for evaluation of strokelike symptoms. Patient states that last night around 3:30 PM he began developing difficulty with writing with his right hand. He states that he was unable to coordinate smoothly writing words and when he would attempt to write it would come out of scribbles on the paper. He states that he felt some weakness in the hand at that time. When he arrived to work several of his coworkers told him that he had right-sided facial drooping. He continued to work throughout the entirety of his evening shif the patient is not on anticoagulants t and additionally noticed some dysarthria. He had no problems with language processing. He did not have any deficits in the right lower extremity or either of the left extremities. No chest pain or shortness of breath. The patient is not on anticoagulants or a daily aspirin. Related Data Home Medications ?Medication ?Instructions ?Recorded ?Confirmed amlodipine 5 mg-benazepril 10 mg 1 cap PO DAILY htn 08/25/23 capsule metformin 500 mg tablet,extended 1,000 ea PO DAILY dm 04/27/21 08/25/23 release 24 hr metoprolol succinate 100 mg 100 ea PO DAILY htn 08/25/23 tablet,extended release 24 hr Previous Rx's ?Medication ?Instructions ?Recorded gabapentin 100 mg capsule 100 mg PO TID PRN nerve pain 30 04/27/21 days #90 caps Allergies Allergy/AdvReac Type Severity Reaction Status Date / Time No Known Allergies Allergy Verified 06/27/23 07:13 [facility] Disclaimer: The information contained in this section may have been updated after the patient was seen, as this information can be updated by other users. Medical History (Updated 05/24/25 @ 13:38 by Jad Tucker DO) Neuropathy Diabetes mellitus, type 2 Hypertension Surgical History (Updated 08/29/23 @ 07:13 by Damien Ugarte RN) History of cataract extraction Family History Other Family history of hyperlipidemia Family history of hypertension Social History Smoking Status: Unknown if ever smoked alcohol intake: never current occupational status: employed Travel in the last 8 weeks?: None Have you lived/traveled outside [place] in past 30 days?: No Contact w/someone who lives/traveled outside US past 30 days?: No Exposure to someone with infectious disease in past 14 days?: No Do you have a fever (greater than 100.4 F or 38 C)?: No Have you tested positive for COVID-19?: No Exposed to someone with COVID-19 in past 14 days?: No Do you have a sore throat?: No Do you have a cough?: No Do you have any weakness?: No Do you have any diarrhea?: No Are you experiencing any unusual bleeding?: No Do you have any muscle aches/pain?: No Do you have any abdominal pain?: No Are you experiencing loss of taste or smell?: No Other Medical History Have you received the Pneumonia Vaccine: No ROS Obtained: Yes Systems reviewed as appropriate & no additional complaints except as documented Physical Exam General General appearance: other (See MDM) Respiratory Respiratory exam: Present other (See MDM) Cardiovascular Cardiovascular exam: Present other (See MDM) Neurological Exam Neurological exam: Present other (See MDM) Medical Decision Making Medical Records Medical records reviewed: Yes I reviewed the patient's medical records. Screening: Per USPSTF and CDC recommendations, given the prevalence of disease in our region, it is our hospital?s policy to screen for HIV and viral Hepatitis for all patients aged 18 and over and those with ongoing risk factors. Prabhu Inquiry Pt receiving controlled substance: No Prabhu was queried for this patient: No Vital Signs: 05/24/25 07:17 05/24/25 08:00 05/24/25 08:30 Temperature 97.9 F Temperature Source Oral Pulse Rate 69 63 Pulse Rate [Radial] 76 Respiratory Rate 18 21 23 Blood Pressure 185/111 H 182/106 H Blood Pressure [Right Arm] 181/106 H Blood Pressure Mean Blood Pressure Mean [Right Arm] 131 Blood Pressure Source [Right Arm] Automatic Cuff Blood Pressure Position [Right Arm] Sitting 02 Sat by Pulse Oximetry 98 96 96 Oxygen Delivery Method Room Air Room Air 05/24/25 10:01 05/24/25 10:31 05/24/25 10:45 Temperature Temperature Source Pulse Rate 68 68 71 Pulse Rate [Radial] Respiratory Rate 12 20 17 Blood Pressure 159/97 H 192/116 H 172/108 H Blood Pressure [Right Arm] Blood Pressure Mean 121 Blood Pressure Mean [Right Arm] Blood Pressure Source [Right Arm] Blood Pressure Position [Right Arm] 02 Sat by Pulse Oximetry 96 98 96 Oxygen Delivery Method 05/24/25 11:00 05/24/25 11:31 05/24/25 12:30 Temperature Temperature Source Pulse Rate 65 65 59 L Pulse Rate [Radial] Respiratory Rate 15 13 22 Blood Pressure 168/108 H 171/106 H 170/109 H Blood Pressure [Right Arm] Blood Pressure Mean Blood Pressure Mean [Right Arm] Blood Pressure Source [Right Arm] Blood Pressure Position [Right Arm] 02 Sat by Pulse Oximetry 95 96 96 Oxygen Delivery Method 05/24/25 13:00 Temperature Temperature Source Pulse Rate 53 L Pulse Rate [Radial] Respiratory Rate 22 Blood Pressure 152/100 H Blood Pressure [Right Arm] Blood Pressure Mean Blood Pressure Mean [Right Arm] Blood Pressure Source [Right Arm] Blood Pressure Position [Right Arm] 02 Sat by Pulse Oximetry 95 Oxygen Delivery Method Lab Data Lab Results 05/24/25 07:10: WBC 9.4, RBC 4.88, Hgb 15.3, Hct 44.4, MCV 91.0, MCH 31.4 H, MCHC 34.5, RDW 12.7, Plt Count 191, MPV 11.0 H, Neut % (Auto) 61.6, Lymph % (Auto) 27.7, Kimball % (Auto) 8.5, Eos % (Auto) 1.5, Baso % (Auto) 0.4, Neut # (Auto) 5.8, Lymph # (Auto) 2.6, Kimball # (Auto) 0.8, Eos # (Auto) 0.1, Baso # (Auto) 0.0, PT 11.0, INR 0.99, APTT 29.4, Sodium 142, Potassium 3.9, Chloride 106, Carbon Dioxide 27, Anion Gap 12.9, BUN 14, Creatinine 0.90, Estimated Creat Clear -75 L, Estimated GFR 84, Est GFR ( Amer) 102, Glucose 95, Calcium 9.2, Total Bilirubin 1.0, AST 29, ALT 28, Alkaline Phosphatase 52, Troponin I < 0.01, Total Protein 7.8, Albumin 4.8, Globulin 3.0, Albumin/Globulin Ratio 1.6, Triglycerides 213 H, Cholesterol 176, LDL Cholesterol Direct 95.12 L, VLDL Cholesterol 43 H, HDL Cholesterol 40, Cholesterol/HDL Ratio 4.4 H, Plasma/Serum Alcohol < 10, HCV Ab NATY w/Rflx PCR Qn Negative, HIV Ag/Ab Combo Qual Negative 05/24/25 07:12: POC Glucose 101 05/24/25 07:23: Urine Opiates Screen Negative, Urine Methadone Screen Negative, Ur Barbituates Screen Negative, Ur Phencyclidine Scrn Negative, Ur Amphetamines Screen Negative, U Benzodiazepines Scrn Negative, Urine Cocaine Screen Negative, U Marijuana (THC) Screen Negative 05/24/25 07:50: Urine Color Yellow, Urine Appearance Clear, Urine pH 7.0, Ur Specific [place] 1.010, Urine Protein Negative, Urine Glucose (UA) Negative, Urine Ketones Negative, Urine Blood Negative, Urine Nitrate Negative, Urine Bilirubin Negative, Urine Urobilinogen 0.2, Ur Leukocyte Esterase Negative, Urine RBC None, Urine WBC Occasional, Ur Squamous Epith Cells Occasional, Urine Bacteria None 05/24/25 07:10 05/24/25 07:10 Orders (Tests/Meds): ED MEDICATIONS Generic Name Dose Route Start Last Admin Trade Name Freq PRN Reason Stop Dose Admin Sodium Chloride 10 ml 05/24/25 07:23 Sodium Chloride 0.9% 10ml Flush Syringe IV 06/23/25 07:22 NEEDED PRN Maintain IV Site Discontinued Medications Generic Name Dose Route Start Last Admin Trade Name Freq PRN Reason Stop Dose Admin Iopamidol 80 ml 05/24/25 07:48 05/24/25 07:48 Iopamidol-370 (76%);100ml Bottle IV 05/24/25 07:49 80 ml ONCE ONE Administration Sodium Chloride 10 ml 05/24/25 07:48 05/24/25 07:48 Sodium Chloride 0.9% 10ml Syr (Rad Only) IV 05/24/25 07:49 10 ml ONCE ONE Administration Sodium Chloride 50 ml 05/24/25 07:48 05/24/25 07:48 0.9 % Sodium Chloride 50 Ml Vial IV 05/24/25 07:49 50 ml ONCE ONE Administration ORDERS Category Date Time Status CT angio head Stat Cat Scan 05/24/25 07:[address] angio neck Stat Cat Scan 05/24/25 07:[address] head/brain wo con Stat Cat Scan 05/24/25 07:23 Completed Activated Partial Thrombo Time Stat Lab 05/24/25 07:10 Completed Complete Blood Count Auto Diff Stat Lab 05/24/25 07:10 Completed Comprehensive Metabolic Panel Stat Lab 05/24/25 07:10 Completed Drug Screen,Urine Stat Lab 05/24/25 07:23 Completed Ethyl Alcohol Stat Lab 05/24/25 07:10 Completed HIV Combo Stat Lab 05/24/25 07:10 Completed Hepatitis C Ab Qual. W/ RFX Stat Lab 05/24/25 07:10 Completed Lipid Panel Stat Lab 05/24/25 07:10 Completed POC Glucose,Bedside Routine Lab 05/24/25 07:12 Completed Prothrombin Time INR Stat Lab 05/24/25 07:10 Completed Troponin I Stat Lab 05/24/25 07:10 Completed Urinalysis and Microscopic Stat Lab 05/24/25 07:50 Completed ECG Data Tracing #1: I reviewed this ECG and interpreted as documented below: EKG personally interpreted by me demonstrates normal sinus rhythm with a rate of 77 bpm, left axis, no WI prolongation, narrow QRS, no QTc prolongation. No ST elevation or depression. No overt signs of ischemia. There are PVCs present. Medical Decision Narrative: In summary, this is a 65-year-old male patient who is presented to the emergency department today with strokelike symptoms onset yesterday at 3:30 in the afternoon marked my right upper extremity weakness, dysarthria, and right-sided facial drooping. He states that the symptoms have improved since onset. Comorbidities include a past medical history of hypertension and diabetes. On initial evaluation of the patient they were resting comfortably in no acute distress and nontoxic in appearance. They are hemodynamically stable, saturating well room air, and are neurologically intact. On physical examination of the patient he is appropriately alert and interactive with a GCS of 15. He is accurate with the month, date, and his age. He has a very mild dysarthria. No difficulty with language processing. He has 5 out of 5 strength in his bilateral upper and lower extremities. No dysdiadochokinesia. No ataxia with [id number] or [id number]. There is mild right-sided facial drooping that spares the forehead. He has normal sensation in his bilateral upper and lower extremities without extinction. His NIH is 2. Differential diagnosis includes ischemic stroke, large vascular occlusion, intracranial hemorrhage, among others. This patient's clinical picture does not fit with Salinas's palsy as it involve the right upper extremity and spares the forehead. Workup was initiated with hematologic labs as well as an EKG and stroke protocol CTs of the head including a CTA of the head and neck and a CT brain without contrast. Labs personally turbid by me demonstrate no actionable abnormalities. No evidence of coagulopathy. No electrolyte derangement or acute kidney injury. Troponin is less than 0.01. Urinalysis is negative. Talk screen is negative. CTA of the head and neck and CT head without contrast was interpreted by radiology and demonstrates no actionable normality. This patient's ABCD2 score is 7 which is extremely high risk for recurrent stroke within the next 90 days. I also feel that he is at an extremely elevated risk of recurrent stroke within the next 48 hours and I feel that he would be best served by further workup for stroke with an MRI. We do not have capability to perform MRI on the weekend. Therefore I had an interactive discussion with the stroke team at [facility] in [place]. They have accepted the patient for admission but do not currently have beds. They have stated they will call us back with peds later this afternoon. I kept the patient in the emergency department over the course of about [address] then [address] Baron to see if he can admit the patient until he is able to be transferred to another hospital. Dr. Baron declined admission initially and had us call [facility] back. Back to stated that they would not have a bed available until tomorrow. Therefore Dr. Baron recommended that we call [facility] in [place] to see if they had more immediate bed available for the patient for transfer. I then had an interactive discussion with the stroke team at [facility] in [place] and they also excepted the patient but also did not have a bed available at the current time. They to will call us back in the next few hours whenever the patient has a bed available and is able to be transferred. In light of this, I discussed this case again with Dr. Baron who ultimately agreed to accept the patient to his service for further monitoring until he can be transferred out to [facility] or [facility]. At this time we have loaded the patient with 300 mg of Plavix and 324 mg of aspirin. He was admitted in stable condition. Critical Care Critical Care Time Critical Care Time: No
[2025-05-24 07:37] LABS: Hematocrit 44.4 % (42.0-52.0); Hemoglobin 15.3 g/dL (14.1-18.0); Immature Granulocytes % 0.3 %; Mean Corpuscular HGB Conc 34.5 g/dL (31.8-35.4); Mean Corpuscular Hemoglobin 31.4 pg (27.0-31.2); Mean Corpuscular Volume 91.0 fl (80-94); Nucleated Red Blood Cells % 0 %; Platelet Count 191 K/mm3 (142-424); Red Blood Count 4.88 M/mm3 (4.60-6.20); Red Cell Distribution Width-SD 41.9 fL; White Blood Count 9.4 K/mm3 (4.8-10.8)
[2025-05-24] MEDS: IOPAMIDOL-370 (76%);100ML BOTTLE 80 ML IV (07:48)
[2025-05-24] MEDS: SODIUM CHLORIDE 0.9% 10ML SYR (RAD ONLY) 10 ML IV (07:48)
[2025-05-24] MEDS: 0.9 % SODIUM CHLORIDE 50 ML VIAL IV (07:48)
[2025-05-24 07:52] LABS: Alanine Aminotransferase 28 U/L (12-78); Albumin Level 4.8 g/dl (3.5-5.0); Albumin/Globulin Ratio 1.6 (1.1-1.8); Alkaline Phosphatase 52 U/L (38-126); Anion Gap 12.9 mEq/L (5-15); Aspartate Amino Transferase 29 U/L (17-59); Bilirubin,Total 1.0 mg/dl (0.2-1.3); Blood Urea Nitrogen 14 mg/dl (9-20); Calcium 9.2 mg/dl (8.4-10.2); Carbon Dioxide 27 mmol/L (22.0-30.0); Chloride 106 mmol/L (98-107); Cholesterol 176 mg/dl (140-200); Creatinine Clearance Estimated -75 mL/min (50-200); Creatinine,Serum 0.90 mg/dl (0.66-1.25); Estimated Glomerular Filt Rate 84 ml/min (>60); GFR (African American) 102 ML/MIN (>60); Globulin 3.0 g/dL (1.3-3.2); Glucose 95 mg/dl (74-100); HDL Cholesterol 40 mg/dl (40-60); Potassium 3.9 mmoL/L (3.5-5.1); Sodium 142 mmol/L (136-145); Total Protein,Serum 7.8 g/dl (6.3-8.2); Triglycerides 213 mg/dl (30-150)
[2025-05-24 07:53] LABS: Activated Partial Thrombo Time 29.4 seconds (22.8-30.6); INR 0.99 (0.9-1.1); Prothrombin Time 11.0 seconds (10.1-12.5)
[2025-05-24 07:58] LABS: Microscopic, Urine URINE MICROSCOPIC (MICROSCOPIC)
--- NOTE | 2025-05-24 08:00 | PC.NURSE ---
Called [facility] for possible patient transfer. Images have been power shared.
[2025-05-24 08:03] LABS: Bilirubin,Urine Negative (Negative); Color,Urine YELLOW (Yellow); Glucose,Urine (UA) Negative (Negative); Ketones,Urine Negative (Negative); Leukocyte Esterase,Urine Negative (Negative); PH,Urine 7.0 (5.0-8.5); Protein,Urine Negative (Negative); Specific Gravity, Urine 1.010 (1.005-1.030); Urobilinogen,Urine 0.2 EU/dl (0.2)
--- NOTE | 2025-05-24 08:05 | PC.NURSE ---
Dr. Tucker speaking with doctor at [facility].
[2025-05-24 08:14] LABS: Troponin I < 0.01 ng/ml (0.00-0.034)
[2025-05-24 08:16] LABS: Squamous Epithelial Cell,Urine Occasional #/hpf (0-5); WBC,Urine Occasional #/hpf (0-3)
--- NOTE | 2025-05-24 08:23 | PC.NURSE ---
faxing facesheet to [facility]
[2025-05-24 08:54] LABS: Amphetamine/Metha Screen,Urine Negative ng/ml (<1000)
[2025-05-24 08:55] LABS: Barbiturates Screen,Urine Negative ng/ml (<200); Benzodiazepines Screen,Urine Negative ng/ml (<200)
[2025-05-24 08:57] LABS: Methadone Screen,Urine Negative ng/ml (<300)
[2025-05-24 08:59] LABS: Opiate Screen,Urine Negative ng/ml (<300)
[2025-05-24 09:00] LABS: Phencyclidine Screen,Urine Negative ng/ml (<25)
[2025-05-24 10:24] LABS: Hepatitis C Ab Qual. W/ RFX NEGATIVE (Negative)
--- NOTE | 2025-05-24 10:38 | PC.NURSE ---
spoke with [facility] [phone] at [facility] and they stated patient is on waitlist and they dont get any discharges until the afternoon, ER MD made aware and will work on patient getting a bed upstairs
--- NOTE | 2025-05-24 11:02 | PC.NURSE ---
Dr. Baron paged.
--- NOTE | 2025-05-24 11:46 | PC.NURSE ---
Called [facility] for possible transfer
--- NOTE | 2025-05-24 11:46 | PC.NURSE ---
Dr. Tucker speaking with neurologist at [facility]
[2025-05-24] MEDS: ASPIRIN 325MG TABLET 325 MG PO (14:13)
--- NOTE | 2025-05-24 14:21 | PC.NURSE ---
Carmine is currently on phone with EMS for transfer
--- NOTE | 2025-05-24 14:32 | PC.NURSE ---
called report to [facility] main nurse at [phone] and called ems for for transport
== END 2025-05-24 14:46 | disposition short-term general hospital (02) ==
LOC: ER 07:28 → 2ND 13:34 → ER 14:18
PROVIDERS: Emergency Provider Student in an Organized Health Care Education/Training Program; PCP Family Medicine
DX: G45.9 Transient cerebral ischemic attack, unspecified (principal)
CPT/HCPCS: 70450; 70496; 70498; 80053; 80061; 80307; 80320; 81001; 82962; 84484; 85025; 85610; 85730; 86803; 87389; 93005; 99285; Q9967